=== PATIENT | male | born 1985 | race Asian ===

== ENCOUNTER 2018-09-30 12:01 | Emergency (ER) | payer OTHER ==
[~2018-09-30] VITALS: Ht 177.8 cm; Wt 83.9 kg
[~2018-09-30 12:01] MED LIST: HYDACE5 PO; OXYACE5T PO; SULTRIDS PO
[2018-09-30] MEDS ORDERED: Monodox100 MG PO (12:11)
[2018-09-30] MEDS ORDERED: IBUP600 PO (12:11)
== END 2018-09-30 12:17 | disposition home or self-care (01) ==
LOC: ER 12:01
DX: L03.115 Cellulitis of right lower limb (principal); F17.210 Nicotine dependence, cigarettes, uncomplicated
CPT/HCPCS: 99283

== ENCOUNTER 2019-01-21 22:15 | Emergency (ER) | payer OTHER ==
[~2019-01-21] VITALS: Ht 177.8 cm; Wt 83.9 kg
[~2019-01-21 22:15] MED LIST changes: +IBUP600 PO; +Monodox100 MG PO
[2019-01-22 01:49] LABS: BASOPHILS ABSOLUTE AUTO 0.03 K/mm3 (0.00-0.23); BASOPHILS PERCENT AUTO 0 % (0-2); EOSINOPHILS ABSOLUTE AUTO 0.05 K/mm3 (0.00-0.68); EOSINOPHILS PERCENT AUTO 0 % (0-6); Hematocrit 40.5 % (37.0-53.0); Hemoglobin 13.5 g/dL (13.5-17.5); IMMATURE GRAN ABSOLUTE AUTO 0.05 K/mm3 (0.00-0.10); IMMATURE GRAN PERCENT AUTO 0 % (0-1); LYMPHOCYTES ABSOLUTE AUTO 1.51 K/mm3 (0.84-5.20); LYMPHOCYTES PERCENT AUTO 9 % (21-46); MONOCYTES ABSOLUTE AUTO 1.33 K/mm3 (0.16-1.47); MONOCYTES PERCENT AUTO 8 % (4-13); Mean Corpuscular HGB 31.7 pg (26.0-34.0); Mean Corpuscular HGB Conc 33.3 g/dL (31.5-36.5); Mean Corpuscular Volume 95 fL (80-100); Mean Platelet Volume 9.6 fL (9.1-12.4); NEUTROPHILS ABSOLUTE AUTO 14.57 K/mm3 (1.96-9.15); NEUTROPHILS PERCENT AUTO 83 % (41-73); Platelet Count 158 K/mm3 (150-400); RDW Coefficient Variation 12.2 % (11.7-14.2); RDW Standard Deviation 43.4 fL (35.1-46.3); Red Blood Cell Count 4.26 M/mm3 (4.30-5.90); White Blood Cell Count 17.54 K/mm3 (4.00-11.30)
[2019-01-22 02:07] LABS: Alanine Aminotransfer (ALT/SGP 14 U/L (12-78); Albumin, Blood 3.3 g/dL (3.4-5.0); Albumin/Globulin Ratio 0.9 (0.8-1.8); Alk Phos 75 U/L (50-136); Anion Gap 6 mmol/L (6-16); Aspartate Aminotrans (AST/SGOT 7 U/L (12-37); Blood Urea Nitrogen 10 mg/dL (8-24); CO2, Blood 27 mmol/L (21-32); Calcium, Blood 8.2 mg/dL (8.5-10.1); Chloride, Blood 100 mmol/L (98-108); Globulin, Blood 3.7 g/dL (2.2-4.0); Glomerular Filtration Rate >60 (60-); Glucose, Blood 94 mg/dL (70-99); Magnesium, Blood 1.7 mg/dL (1.6-2.4); Potassium, Blood 3.6 mmol/L (3.5-5.5); Sodium, Blood 133 mmol/L (136-145)
[2019-01-22] MEDS ORDERED: Augmentin 875-1 EACH PO (04:01)
== END 2019-01-22 04:20 | disposition home or self-care (01) ==
LOC: ER 22:15
PROVIDERS: Emergency Medicine
DX: K61.0 Anal abscess (principal); F17.210 Nicotine dependence, cigarettes, uncomplicated
CPT/HCPCS: 36415; 46040; 72193; 80053; 83605; 83735; 85025; 87040; 96374-59; 99284-25; A9270; J1170; J7030; Q9967

== ENCOUNTER 2022-03-21 11:23 | Emergency (ER) | payer OTHER ==
[~2022-03-21] VITALS: Ht 177.8 cm; Wt 81.7 kg
[~2022-03-21 11:23] MED LIST changes: +Augmentin 875-1 EACH PO
== END 2022-03-21 14:23 | disposition home or self-care (01) ==
LOC: ER 11:23
DX: S61.412A Laceration without foreign body of left hand, initial encounter (principal); F17.200 Nicotine dependence, unspecified, uncomplicated; W26.0XXA Contact with knife, initial encounter
CPT/HCPCS: 90714